=== PATIENT | male | born 1950 | race Caucasian/White ===

== ENCOUNTER 2024-01-26 05:54 | Day surgery (SDC) | payer MEDICARE, OTHER, SELFPAY ==
[2024-01-06 13:15] VITALS: BMI 37.9
[2024-01-26] VITALS (11 sets, daily range): BP systolic 111–163; BP diastolic 57–81
[2024-01-26 08:53] LABS: ACT-LR - POC 343 Seconds (116-155)
[2024-01-26 09:14] LABS: ACT-LR - POC 348 Seconds (116-155)
[2024-01-26 09:37] LABS: ACT-LR - POC 285 Seconds (116-155)
[2024-01-26 09:57] LABS: ACT-LR - POC 326 Seconds (116-155)
[2024-01-26 10:14] LABS: ACT-LR - POC 358 Seconds (116-155)
--- NOTE | 2024-01-26 10:35 | ITS.CL.ABL ---
Finishing Range Feeder - Ablation
Ablation
Procedure Report:
ELECTROPHYSIOLOGY ABLATION STUDY
DATE:: January 26, 2024 REFERRING: Dr. Remy Mcconnell
INDICATION: Paroxysmal supraventricular tachycardia in the form of atrial fibrillation. Refractory to amiodarone therapy
HISTORY: See H and P. As above
ANTIARRHYTHMIC DRUG: Amiodarone
PRE-PROCEDURE DEREK: No intracardiac thrombus
PRESENTING RHYTHM: Sinus bradycardia with right bundle branch block
'TIME-OUT': called and confirmed.
SEDATION/ANESTHESIA: provided via the anesthesia department using general anesthesia (LMA).
INTRAVENOUS/ARTERIAL ACCESS:
Right femoral venous - 8Fr
Left femoral venous - 8 Fr, 6 Fr
Ultrasound guidance for bilateral femoral vein access was utilized by me to obtain access with demonstration of normal anatomy
CHADS-VASC Score:
HAS-Bled Score
PROCEDURE:
1. A decapolar CS catheter was placed within the CS for mapping and pacing. This was also used as the reference catheter for the 3-D map.
2. The intracardiac ultrasound catheter was positioned in the RA to identify the FO for targeting of transseptal puncture, assist in identification of the pulmonary vein ostia, monitoring pre and post ablation pulmonary vein flow velocities,
monitoring for 'bubble' formation during RF application as a sign of thermal injury, and to monitor for pericardial effusion during mapping and ablation procedure. Left atrial size, LV ejection fraction, and pulmonary vein flows were monitored
pre and post ablation procedure. The other valves were inspected and found to be free of significant regurgitation or stenosis.
3. Half of the calculated heparin bolus was administered prior to the first transeptal puncture. Transseptal puncture was performed to diagnose RA and LA pressure so that safety of LA mapping and ablation could be further assessed, and to access
the left atrium and pulmonary veins for mapping and ablation. This entailed advancing an 12 Bulgarian Contour with dilator into the superior vena cava and withdrawing both (monitoring intracardiac ultrasound, fluoroscopy and tip pressure) with the tip
oriented toward the atrial septum. The fossa ovalis was engaged (indicated by sudden displacement of the sheath tip as well as tenting of the fossa seen on intracardiac ultrasound). Left atrial access required a pass with the [place] needle
extended. Left atrial catheter position was confirmed by pressure monitoring (RA mean pressure 8 mm Hg and LA mean pressure 12 mm Hg), LA saturation ( [ ] %), as well as fluoroscopy. The sheath was advanced over the dilator and positioned in the
left atrium. The remainder of the calculated heparin bolus was administered and heparin was
infused to maintain ACT at 300 -350 seconds throughout the case.
4. RA pacing was performed via the proximal decapolar poles and LA pacing was performed via the distal decapolr poles.
5. A quadrapolar catheter was first positioned at the His position for His Bundle recording which was tagged via the 3-D Navex sytem, and then passed to the RVA for RV pacing and recording.
6. The ablation catheter was positioned through one of the transeptal seaths and a 20 pole ring mapping catheter was positioned through the second seath into the LA and then the ostia of the LIPV, LSPV, RSPV and the RIPV.
7. Next, a 3-D map was created using Navex. A 3-D reconstructed CT image was compared to the 3-D Navex map to assist in anatomic interpretation, mapping and ablation. The CT image and the NavX image were fused.
8. Initial pass was 74 lesions with the pulsed select catheter to the ostial and antral pulmonary veins and posterior wall demonstrated initial entrance and exit block in each of the 4 pulmonary veins and the posterior wall. We then mapped the
left atrium with a multipolar catheter demonstrating quite distal connection in the left superior pulmonary vein at the anterior paulino and the right inferior pulmonary vein at the posterior paulino. It was somewhat difficult to bring the pulsed
light catheter distally so the catheter was extended approximately one third which allowed us to engage the distal left superior pulmonary vein and right inferior pulmonary veins and deliver an additional 15 pulses to the left superior and right
inferior pulmonary veins durably isolating the veins with entrance and exit block confirmed as well as entrance and exit block in the left atrial posterior wall. The patient was noninducible for tachyarrhythmia post ablation and EPS did not
demonstrate any inducible tachyarrhythmia.
9. Patient was noted to have sinus bradycardia pre and post procedure with a right bundle branch block and a normal HV interval at 58 ms.
TOTAL FLOURO TIME: 16.7 minutes 167 mGy
TOTAL RF DURATION: 0 minutes
REVERSAL OF HEPARIN: 35 mg of protamine, slow IV administration
COMPLICATIONS:
None
Intracardiac US shows no pericardial effusion post ablation.
SUMMARY:
Complex left atrial mapping and ablation.
Isolation of all 4 pulmonary veins of the left atrial posterior wall as above. The pulsed light catheter was required to be delivered distally in the side the left superior pulmonary vein and right inferior pulmonary veins to address deep
connections at each paulino.
RECOMMENDATIONS:
1. Admit to monitored bed.
2. Resume anticoagulation
3. Out of bed 4 hours and consider same-day discharge
4. Lower amiodarone to 200 mg daily and stop in 1 month
Copy to: Dr. Remy Mcconnell
[2024-01-26] MEDS: ANESTHETIC LOZENGE 1 LOZENGE PO (11:49)
--- NOTE | 2024-01-26 15:17 | W.PN.UPDATE ---
Update Note
Progress Note Update
73 yo WM s/p PVI (same day). He feels good, no cp, sob, guy diet, voiding, amb w/o dizziness, EKG SR, b/l groins c/d/i no HT, soft. He will take Eliquis at 4pm at home. He will decrease amiodarone to daily for 1 month then stop. Activity
restrictions reviewed. He will f/u Dr. Mcconnell in 1 mo. He is for d/c home after 3pm.
SUMMARY:
Complex left atrial mapping and ablation.
Isolation of all 4 pulmonary veins of the left atrial posterior wall as above. The pulsed light catheter was required to be delivered distally in the side the left superior pulmonary vein and right inferior pulmonary veins to address deep
connections at each paulino.
RECOMMENDATIONS:
1. Admit to monitored bed.
2. Resume anticoagulation
3. Out of bed 4 hours and consider same-day discharge
4. Lower amiodarone to 200 mg daily and stop in 1 month
Copy to: Dr. Remy Mcconnell
== END 2024-01-26 15:03 | disposition home or self-care (01) ==
LOC: CATH 05:54
PROVIDERS: ATTENDING PHYSICIAN Internal Medicine Cardiovascular Disease; FAMILY PHYSICIAN Family Medicine; OTHER PHYSICIAN Internal Medicine Cardiovascular Disease
DX: I48.0 Paroxysmal atrial fibrillation (principal); I11.0 Hypertensive heart disease with heart failure; I50.32 Chronic diastolic (congestive) heart failure; Z95.1 Presence of aortocoronary bypass graft; I25.10 Atherosclerotic heart disease of native coronary artery without angina pectoris; I65.21 Occlusion and stenosis of right carotid artery; E78.5 Hyperlipidemia, unspecified; E03.9 Hypothyroidism, unspecified; E66.9 Obesity, unspecified; Z68.37 Body mass index [BMI] 37.0-37.9, adult; M19.90 Unspecified osteoarthritis, unspecified site; Z95.5 Presence of coronary angioplasty implant and graft
CPT/HCPCS: C1732; C1894; C1730; C1769; C1892; C1759; C1733; 76937; 85347; 86900; 86901; 93005; 93656

== ENCOUNTER → 2024-02-08 11:55 | Outpatient (REF) | payer MEDICARE, OTHER, SELFPAY | LOC: RAD 11:55 | PROVIDERS: ATTENDING PHYSICIAN Surgery Vascular Surgery; FAMILY PHYSICIAN Family Medicine; OTHER PHYSICIAN Internal Medicine Cardiovascular Disease | DX: I65.23 Occlusion and stenosis of bilateral carotid arteries (principal) | CPT/HCPCS: 70496; 70498; Q9967 ==

== ENCOUNTER 2024-05-18 06:02 | Inpatient (IN) | payer MEDICARE, OTHER, SELFPAY ==
[2024-05-16 09:23] VITALS: BMI 39.5
[2024-05-16 09:49] LABS: % Basophils 0.8 % (0-2); % Eosinophils 4.2 % (0-6); % Immature Granulocytes 0.3 % (0-0.5); % Lymphocytes 15.3 % (20.5-51.1); % Monocytes 11.3 % (1.7-9.3); % Neutrophils 68.1 % (42.2-75.2); Absolute Basophils 0.1 10^3/uL (0-0.2); Absolute Eosinophils 0.3 10^3/uL (0-0.7); Absolute Monocytes 0.7 10^3/uL (0.1-0.6); Absolute Neutrophils 4.4 10^3/uL (1.4-6.5); Hematocrit 39.3 % (39.0-52.0); Hemoglobin 12.9 g/dL (13.0-18.0); Mean Corp Hgb Conc. 32.8 g/dL (33.0-37.0); Mean Corpuscular Hgb 27.9 pg (27.0-31.0); Mean Corpuscular Volume 85.1 fL (80.0-94.0); Mean Platelet Volume 9.7 fL (7.4-10.4); Nucleated Red Blood Cells % 0 % (-); Platelet Count 167 10^3/uL (130-400); Red Blood Cell Count 4.62 10^6/uL (4.70-6.10); Red Cell Dist. Width 17.4 % (11.5-14.5); White Blood Cell Count 6.5 10^3/uL (4.8-10.8)
[2024-05-16 09:57] LABS: INR 1.41; PT 17.3 Sec (11.4-14.6)
[2024-05-16 09:58] LABS: APTT 34.7 Sec (23.4-35.0)
[2024-05-16 11:14] LABS: Blood Urea Nitrogen 21 mg/dl (9-20); Calcium 9.6 mg/dl (8.4-10.2); Carbon Dioxide 23 mmol/L (22-30); Chloride 105 mmol/L (98-107); Estimated Creatinine Clearance 60 ml/min; Glucose 99 mg/dl (70-99); Potassium 4.2 mmol/L (3.5-5.1); Sodium 139 mmol/L (135-145); eGFR 52.41
--- NOTE | 2024-05-17 12:46 | SUR.OPER ---
Patients 05/16 INR 1.41- Priyanka @ Dr. Ramos office notified
[2024-05-18] VITALS (19 sets, daily range): BP systolic 115–171; BP diastolic 63–111; BMI 39.5
--- NOTE | 2024-05-18 06:53 | HP.FOC2 ---
Focused History & Physical
Chief Complaint
HPI:
Chief Complaint: Asymptomatic right carotid stenosis
HPI / Indication for Planned Procedure: This is a 73-year-old male patient with significant past medical history for a carotid stenosis that has progressed to greater than 70% prompting recommendation for surgical intervention. Patient presents at
baseline health and denies recent hospitalizations, illnesses, or trauma.
Relevant Past Medical History: Coronary Artery Disease, Hypertension and Other (Hypothyroidism, hypercholesterolemia, obesity, atrial fibrillation)
Relevant Social History: Negative and Tobacco Use (Former smoker)
Relevant Family History: Positive for (Coronary artery disease)
Relevant Past Surgical History: Positive for (Bilateral knee replacements, CABG x 4, left hip replacement, A-fib ablation)
Review of Systems
Review of Pertinent Systems: All Systems Negative
Medication
See Medication form for detailed medications: Yes
Medication List (including Herbals & OTC):
apixaban 5 mg tablet (Eliquis) 5 mg PO BID 01/02/24
aspirin 81 mg chewable tablet 81 mg PO DAILY 01/02/24
cholecalciferol (vitamin D3) 125 mcg (5,000 unit) tablet (Vitamin D3) 125 mcg PO DAILY 01/02/24
ezetimibe 10 mg tablet 10 mg PO DAILY 01/02/24
isosorbide dinitrate 10 mg tablet 10 mg PO BID 01/02/24
levothyroxine 100 mcg tablet 100 mcg PO DAILY 01/02/24
metoprolol succinate 25 mg tablet,extended release 24 hr 25 mg PO DAILY 01/02/24
rosuvastatin 40 mg tablet 40 mg PO DAILY 01/02/24
tamsulosin 0.4 mg capsule (Flomax) 0.4 mg PO HS 05/15/24
Medications Reviewed: Yes
Allergies and Reactions
Patient has Allergies: Yes
Noted Allergies and Reactions:
Allergy/AdvReac Type Severity Reaction Status Date / Time
pollen extracts Allergy seasonal Verified 05/15/24 13:52
allergies
Pertinent Physical Exam
All Other Systems: Negative
Head/Neck: Normal
Lungs: Normal (Bilateral lungs clear to auscultation)
Heart: Other (Regular rate and rhythm, positive murmur)
Abdomen: Normal (Nontender and nondistended)
Extremities: Normal
Neurological: Normal (Awake and oriented x 3)
Diagnosis / Assessment
73-year-old male with right carotid stenosis
Plan / Procedure
Will proceed today with planned right carotid endarterectomy
Anesthesia/Sedation to be done by Anesthesia Provider: Yes
[2024-05-18] MEDS: BACTROBAN NASAL 1 GRAM NASAL (06:56)
[2024-05-18] MEDS: NSS 500 IV (06:57)
[2024-05-18] MEDS: PERIDEX 0.12% ORAL RINSE 15 ML PO (06:57)
--- NOTE | 2024-05-18 07:26 | W.SUR.PREOP ---
Pre-Operative Surgical Note
-
I have examined this patient prior to the performance of the scheduled procedure.
The patient's condition is unchanged from the time of the current History and
Physical and the patient is able to undergo the scheduled procedure.
[2024-05-18 08:59] LABS: ACT-LR - POC 321 Seconds (116-155)
[2024-05-18 09:37] LABS: ACT-LR - POC 308 Seconds (116-155)
--- NOTE | 2024-05-18 11:02 | W.SUR.POST ---
Surgical Immediate Post Op
Note
Pre Op Diagnosis: Carotid stenosis
Post Op Diagnosis: Carotid stenosis
Procedure Performed: RIGHT Carotid endarterectomy
Primary Surgeon: Giovanny Goode MD
Secondary Surgeons: Checo Phipps MD, PhD
Anesthesia: Per Anesthesia
Estimated Blood Loss: 20 cc
Fluids: Per Anesthesia
Drains/Shunts: None
Specimens/Cultures: None
Doppler/Duplex/Angio (Y/N): Yes, doppler intact
Complications: None
Operative Findings: Incision over right SCM, dissection and control of CCA, ICA and ECA, endarterectomy and patch with dense plaque resected from RCCA and ABBEY, closed in multiple layers.
[2024-05-18] MEDS: NSS 1000 IV ×2 (11:05→23:09)
--- NOTE | 2024-05-18 11:16 | OR.RPT ---
Operative Report
Operative Report
Date of Operation: 05/18/2024
Pre Op Diagnosis: Asymptomatic high-grade stenosis of the right internal carotid artery
Post Op Diagnosis: Asymptomatic high-grade stenosis of the right internal carotid artery
Procedure: RIGHT carotid endarterectomy with patch angioplasty using bovine pericardium
Surgeon: Giovanny Goode III, MD
Private Branch Exchange Installer: Checo Phipps MD PhD PGY-6
Anesthesia: General
Complications: None
History and Indications for Procedure: 73-year-old male with asymptomatic high-grade stenosis of the right internal carotid artery.
Procedure in Detail: Jim Mckee was correctly identified and placed supine on the operating table. After adequate induction of anesthesia the right neck was positioned, prepped and draped in the usual sterile fashion. Preoperative antibiotics
were administered. A timeout procedure was performed with the nursing and anesthesia staff confirming the patients identity as well as the nature and laterality of the procedure.
The carotid bifurcation was marked with ultrasound at the beginning of the case. The incision was planned accordingly. An incision was made along the anterior border of the right sternocleidomastoid muscle. Electrocautery was used to divide the
subcutaneous tissue and platysma. The carotid sheath was entered with sharp dissection. The internal jugular vein was retracted laterally. The vagus nerve was identified and protected throughout the case. The common carotid artery was identified at
the base of this incision and carefully encircled with a vessel loop. The patient was systemically heparinized. The dissection was continued distally towards the carotid bifurcation. The facial vein was skeletonized, ligated and divided between ties
and clips. The proximal external carotid artery was encircled with a vessel loop. The distal internal carotid artery was encircled with a vessel loop at a soft spot on the artery beyond the plaque. The hypoglossal nerve was identified and protected.
The internal vessel loop was secured followed by the common and external. An arteriotomy was made on the distal common carotid artery with an 11-blade. This was extended proximally and distally with Hcou scissors. The arteriotomy was extended
distally through the plaque to an area of normal appearing internal carotid artery. The distal vessel loop was replaced with a short tip hockey-stick type vascular clamp. An endarterectomy was performed with a [place] elevator in the standard
fashion. The proximal extent of the plaque was transected with scissors. The distal end of the plaque in the internal carotid artery feathered nicely with the assistance of an 11 blade. A posterior intimal flap was tacked down with a single 7-0
Prolene suture along the back wall. The plaque extending into the external carotid artery was everted. Once the plaque was fully removed the endarterectomy plane was irrigated with heparinized saline and any loose fronds of tissue were removed. A
pre-cut piece of bovine pericardium was sewn in place using a running 6-0 Prolene suture. Prior to the completion of the patch the common carotid was allowed to forward bleed and the external was allowed to back bleed. The area under the patch was
irrigated with heparinized saline to remove any potential thrombus or debris. The anastomosis was completed.
The external vessel loop was released first, followed by the common and then the internal. There was an excellent pulse in the distal internal carotid artery. An excellent quality Doppler signal in the distal internal carotid artery was also
confirmed. The patch suture line was closely inspected for hemostasis and was achieved. Protamine was administered. Hemostasis was achieved in the wound bed. The wound was irrigated with saline solution.
The wound was then closed in layers. Sterile dressings were applied. The patient awoke from anesthesia with no immediate neuro deficits and was taken to the PACU in stable condition.
Attestation: I was present and responsible for the entire procedure
Signed:
Giovanny Goode III, MD
[facility]
[phone] (cell)
[2024-05-18 11:21] LABS: INR 1.34; PT 16.4 Sec (11.4-14.6)
[2024-05-18 11:22] LABS: Hematocrit 34.7 % (39.0-52.0); Hemoglobin 11.8 g/dL (13.0-18.0); Mean Corpuscular Hgb 28.2 pg (27.0-31.0); Red Blood Cell Count 4.18 10^6/uL (4.70-6.10); White Blood Cell Count 7.7 10^3/uL (4.8-10.8)
[2024-05-18 11:23] LABS: Mean Platelet Volume 10.4 fL (7.4-10.4); Platelet Count 139 10^3/uL (130-400); Red Cell Dist. Width 17.2 % (11.5-14.5)
[2024-05-18 11:31] LABS: APTT 34.7 Sec (23.4-35.0)
[2024-05-18 11:49] LABS: Blood Urea Nitrogen 21 mg/dl (9-20); Calcium 8.7 mg/dl (8.4-10.2); Carbon Dioxide 22 mmol/L (22-30); Chloride 107 mmol/L (98-107); Estimated Creatinine Clearance 71 ml/min; Glucose 116 mg/dl (70-99); Potassium 4.4 mmol/L (3.5-5.1); Sodium 135 mmol/L (135-145); eGFR > 60.00
--- NOTE | 2024-05-18 12:00 | PTCARENOTE ---
report received from pacu nurse. pt admitted to ICU room 3359. Pt awake, alert, orientedx3. strength equal in all extremities. pupils 3mm equal and reactive. no facial droop, tongue devation noted. pt noted to have right side fat lip- which makes
smile look somewhat asymmetrical. pt reports having a fall on tuesday- two scabbed areas on right forearm with bruising. SR/SB on telemetry heart rate 50-60s. pulses palpable in all extremities. +1 pitting edema in lower extremites. redness noted
on feet- pt reports this is normal for him. knee high SCDs placed. left arterial line, leveled and zeroed with appropriate waveform. correlating with cuff blood pressures. pt on 2L nasal cannula, sat 97%. lung sounds clear. active bowel sounds,
denies nausea. tolerating ice chips and sips of clears. pt states he voided in pacu. NS infusing at 80 ml/hr. 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 ice applied intermittently. see worklist for full nursing assessment and interventions.
and daughter brought to bedside. pt and family updated on plan of care.
--- NOTE | 2024-05-18 12:13 | CON.INTV ---
Consultation
Consultation Request
Date/Time Consultation Requested: 05/18/2024 - 1008
Date/Time Consultation Performed: 05/18/2024 - 1032
Requesting Provider: ENRIQUE Patterson
Performing Provider: Remy Carreon MD
Reason for Consultation: post-op R-CEA
Medical History
-
Chief Complaint: Elective R-CEA
History of Present Illness:
73-year-old male non-smoker with a past medical history of A-fib s/p cardioversion + ablation, CAD s/p coronary stents + CABG, hypertension, hypercholesterolemia, hypothyroidism, carotid artery stenosis and obesity who presents with elective
right-sided carotid endarterectomy. Patient known to vascular surgery with last office visit on 02/16/[address] Goode. He has known bilateral carotid artery stenosis. His prior CTA was reviewed, showing high-grade stenosis involving his right
carotid artery. He was asymptomatic. Today he underwent right carotid endarterectomy. EBL was 20 cc, and there was no complications. He was transferred to the ICU postoperatively and critical care services consulted for additional
management/recommendations.
When I saw the patient he was in bed, and additional family members at bedside, all questions were answered. BP 140/111 (via arterial line), BP 133/61 (via NIBP), and saturating 97% on 3 L/min nasal cannula. He denies any pain, SOB, CP,
abdominal pain, nausea, fevers or chills.
PMHx: Hypertension, coronary artery disease s/p stent, carotid artery stenosis, A-fib on Eliquis, hypothyroidism, hypercholesterolemia, obesity
PSHx: Coronary stents, retinal repair, spinal surgery, bilateral knee replacements, CABG X4, colonoscopy, left hip replacement, cardioversion, ablation
Past Medical History
Past Medical History: Other (Above as per HPI)
Past Surgical History: Other (Above as per HPI)
Social History
Tobacco: Non-smoker
Alcohol: Occasional
Drug: None
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
Family History
Family History: CAD (Father: History of CABG x 4) and Cancer (Father + mother)
Allergies / Home Medications
Allergies
Allergy/AdvReac Type Severity Reaction Status Date / Time
pollen extracts Allergy seasonal Verified 05/15/24 13:52
allergies
Home Medications
�Medication �Instructions �Recorded �Confirmed �Last Taken �Type
apixaban 5 mg tablet (Eliquis) 5 mg PO BID 01/02/24 05/18/24 05/16/24 10:00 History
aspirin 81 mg chewable tablet 81 mg PO DAILY 01/02/24 05/18/24 05/18/24 06:00 History
cholecalciferol (vitamin D3) 125 125 mcg PO DAILY 01/02/24 05/18/24 05/17/24 10:00 History
mcg (5,000 unit) tablet (Vitamin
D3)
ezetimibe 10 mg tablet 10 mg PO DAILY 01/02/24 05/18/24 05/17/24 10:00 History
isosorbide dinitrate 10 mg tablet 10 mg PO BID 01/02/24 05/18/24 05/17/24 22:00 History
levothyroxine 100 mcg tablet 100 mcg PO DAILY 01/02/24 05/18/24 05/18/24 06:00 History
metoprolol succinate 25 mg 25 mg PO DAILY 01/02/24 05/18/24 05/17/24 10:00 History
tablet,extended release 24 hr
rosuvastatin 40 mg tablet 40 mg PO DAILY 01/02/24 05/18/24 05/17/24 10:00 History
tamsulosin 0.4 mg capsule (Flomax) 0.4 mg PO HS 05/15/24 05/18/24 05/17/24 10:00 History
Review of Systems
-
History Source: Patient
All other systems: Negative unless noted
Vitals / Labs / Diagnostic Testing
Vital Signs
Temp Pulse Resp BP Pulse Ox
97.2 F 52 19 127/67 98
05/18/24 11:27 05/18/24 11:15 05/18/24 11:15 05/18/24 11:15 05/18/24 11:15
Lab Data
05/18/24 10:46
05/18/24 10:46
Laboratory Results
05/18/24
10:46
PT 16.4 H
INR 1.34
APTT 34.7
Microbiology
05/16/24 09:37 Nose MRSA Screen - Final
No Methicillin Resistant Staphylococcus aureus isolated.
Diagnostic Testing:
Physical Exam
-
HEENT: Normocephalic, Anicteric and Other (thick neck)
Cardiovascular: S1/S2 and Peripheral Edema (negative)
Respiratory: Wheeze (negative), Rales (negative), Rhonchi (negative) and Non-Labored Respirations
GI: Soft, Distended (Abdominal obesity), Non Tender and Normal Bowel Sounds
Neurology: AO x 3 and Tremors (negative)
Skin: Warm and Dry
General: Respiratory Distress (negative), Comfortable, Fever (negative) and Chills (negative)
Assessment
-
Assessment: 73-year-old male former tobacco smoker with a past medical history of A-fib s/p cardioversion + ablation, CAD s/p coronary stents + CABG, hypertension, hypercholesterolemia, hypothyroidism, carotid artery stenosis and obesity who
presents with elective right-sided carotid endarterectomy. Patient known to vascular surgery with last office visit on 02/16/[address] Goode. He has known bilateral carotid artery stenosis. His prior CTA was reviewed, showing high-grade
stenosis involving his right carotid artery. He was asymptomatic. Today he underwent right carotid endarterectomy. EBL was 20 cc, and there was no complications. He was transferred to the ICU postoperatively and critical care services consulted
for additional management/recommendations.
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
Impression:
#Carotid artery stenosis s/p right carotid endarterectomy (POD #0)
#Anemia (mild)
#Chronic left-sided lacunar infarct
#CAD s/p coronary stents + CABG
#Obesity (BMI: 39.5)
Plan:
Postoperative surgical intensive care unit monitoring
Supplemental oxygen as needed to maintain SpO2 >90-94%
prn nebulized bronchodilators
Incentive spirometry encouraged 10x per hour for at least 4 hrs a day
Aspiration precautions
Neuro and vascular checks per protocol
Maintain MAP>65
Replete electrolytes with K>4, Mg>2
Maintain euglycemia with goal BG 140-180
Vascular surgery following-correspondence and operative notes reviewed
DVT prophylaxis
Early nutrition
Early mobilization
PT/OT
Critical care statement: A total of 38 minutes of critical care time was provided for this patient today. This includes management of unstable vital signs, evaluation of the patient at bedside, reviewing the patient's pertinent medical records
including radiographs, microbiology, laboratory evaluations, and discussion with primary team, consultants, pharmacy, nutrition, physical therapy, case management, charge nurse, critical care nursing, and respiratory therapy.
[2024-05-18 14:29] LABS: Magnesium 1.9 mg/dl (1.6-2.3)
[2024-05-18] MEDS: FLOMAX 0.4 MG PO (21:00)
[2024-05-18] MEDS: TYLENOL 650 MG PO (21:00)
[2024-05-18] MEDS: ISORDIL 10 MG PO (21:00)
[2024-05-18] MEDS: HEPARIN 5000 UNITS SC (21:01)
--- NOTE | 2024-05-18 21:30 | PTCARENOTE ---
Assumed care of pt at 1900. Pt is A/O x4, pleasant and cooperative with care. S/P right CEA. Neurological checks ongoing Q1 hour, have been WNL, see neuro assessment flowsheet for details. Left radial A line in place, BP has been within systolic
goal of 100-160 without the need for Cardene or Phenylephrine. Pt reports [id number] pain, requested Tylenol to 'take the edge off' before going to sleep but rated pain 1/10. Pt intermittantly applying ice pack to right neck incision. Physical
assessment completed, see nursing shift assessment flowsheet for full details. Call chen and personal items within reach.
[2024-05-19] VITALS (16 sets, daily range): BP systolic 102–139; BP diastolic 50–77; PULSE 56–60; O2SAT 94; BMI 39.2
--- NOTE | 2024-05-19 02:21 | PTCARENOTE ---
Assessment unchanged. Neurological checks ongoing, no changes. Pt inadvertently pulled out his arterial line around 0100, catheter completely out and unable to save line. Pressure held and pressure dressing applied, CHG cloth bath done and all bed
linens changed. Pt's BP has remained stable, reading 130s-140s with BP cuff. SB 50s on monitor. SpO2 92-95% on RA.
[2024-05-19 04:32] LABS: Hematocrit 34.8 % (39.0-52.0); Hemoglobin 11.6 g/dL (13.0-18.0); Mean Corp Hgb Conc. 33.3 g/dL (33.0-37.0); Mean Corpuscular Volume 84.1 fL (80.0-94.0); Mean Platelet Volume 9.9 fL (7.4-10.4); Platelet Count 141 10^3/uL (130-400); Red Blood Cell Count 4.14 10^6/uL (4.70-6.10); Red Cell Dist. Width 17.2 % (11.5-14.5); White Blood Cell Count 9.2 10^3/uL (4.8-10.8)
--- NOTE | 2024-05-19 04:42 | PTCARENOTE ---
Physical and neurological assessments unchanged. SB 50s on monitor. BP remains in 130s-140s.
[2024-05-19 04:45] LABS: INR 1.25; PT 15.5 Sec (11.4-14.6)
[2024-05-19 04:46] LABS: APTT 31.9 Sec (23.4-35.0)
[2024-05-19 04:57] LABS: Blood Urea Nitrogen 20 mg/dl (9-20); Calcium 9.3 mg/dl (8.4-10.2); Carbon Dioxide 24 mmol/L (22-30); Chloride 106 mmol/L (98-107); Estimated Creatinine Clearance 70 ml/min; Glucose 135 mg/dl (70-99); Potassium 4.9 mmol/L (3.5-5.1); Sodium 136 mmol/L (135-145); eGFR > 60.00
--- NOTE | 2024-05-19 06:46 | W.PN.INTV ---
Today's Communication / Plan
Recommendations
Out of bed to chair, ambulate
Neuroexam nonfocal
Possible disposition later today
Assessment
-
Assessment: 73-year-old male former tobacco smoker with a past medical history of A-fib s/p cardioversion + ablation, CAD s/p coronary stents + CABG, hypertension, hypercholesterolemia, hypothyroidism, carotid artery stenosis and obesity who
presents with elective right-sided carotid endarterectomy. Patient known to vascular surgery with last office visit on 02/16/[address] Goode. He has known bilateral carotid artery stenosis. His prior CTA was reviewed, showing high-grade
stenosis involving his right carotid artery. He was asymptomatic. Today he underwent right carotid endarterectomy. EBL was 20 cc, and there was no complications. He was transferred to the ICU postoperatively and critical care services consulted
for additional management/recommendations.
Chronic conditions E MARKETING SPECIALIST: Hypertension, coronary artery disease s/p stent, carotid artery stenosis, A-fib on Eliquis, hypothyroidism, hypercholesterolemia, obesity
Impression:
#Carotid artery stenosis s/p right carotid endarterectomy (POD #0)
#Anemia (mild)
#Chronic left-sided lacunar infarct
#CAD s/p coronary stents + CABG
#Obesity (BMI: 39.5)
Plan/recommendations
At this time, patient appears to be comfortable
A-line came out overnight. Hemodynamics are stable
Neurological exam nonfocal
Moving forward
Continue with management per vascular surgery
Out of bed to chair, ambulate
Neuro and vascular checks per protocol
Maintain MAP>65
Follow electrolytes, blood sugars
Vascular surgery following-correspondence and operative notes reviewed
Possible disposition later today
Reviewed with critical care nursing, vascular surgery
Subjective Dataa
Subjective Data
Date of Service:
Date of Service: May 19, 2024
Subjective:
Patient is without complaints. He is feeling hungry. He denies shortness of breath, chest pain, abdominal pain. A-line came out overnight. Conversant and appears to be in good spirits. Neuroexam nonfocal. Right carotid incision intact
Objective Data
Data Reviewed
Vital Signs / I&O / Oxygen:
Vital Signs
Temp Pulse Resp BP Pulse Ox
98.1 F 54 18 134/68 95
05/19/24 03:17 05/19/24 06:00 05/19/24 06:00 05/19/24 06:00 05/19/24 06:00
Intake and Output
05/17/24 05/18/24 05/19/24
06:59 06:59 06:59
Intake Total 2765 / 2765
Output Total 2915 / 2915
Balance -150 / -150
SaO2 95
Nasal Cannula flow liters per 2
minute
Physical Exam
General: Comfortable and Other (Right CEA)
HEENT: Normocephalic, Anicteric and Other (Large neck)
Cardiovascular: S1-S2, Regular Rhythm, Murmur (n), Rub (n), Peripheral Edema (n) and Calf Tenderness (n)
Respiratory: Wheeze (n), Crackles (n), Rhonchi (n) and Non-Labored Respirations
GI: Soft and Non Distended (Obese)
Neurology: Awake, Alert and No Motor Deficits (Cranial nerves intact)
Skin: Jaundice (n) and Rash (n)
Labs/Micro/Reports
Lab Data
05/19/24 04:18
05/19/24 04:18
Laboratory Results
05/18/24 05/19/24
10:46 04:18
PT 16.4 H 15.5 H
INR 1.34 1.25
APTT 34.7 31.9
Microbiology
05/16/24 09:37 Nose MRSA Screen - Final
No Methicillin Resistant Staphylococcus aureus isolated.
[2024-05-19] MEDS: CRESTOR 40 MG PO (07:58)
[2024-05-19] MEDS: LOW STRENGTH ASPIRIN 81 MG PO (07:58)
[2024-05-19] MEDS: TOPROL XL 25 MG PO (07:58)
[2024-05-19] MEDS: ZETIA 10 MG PO (07:58)
[2024-05-19] MEDS: ISORDIL 10 MG PO (07:58)
[2024-05-19] MEDS: VITAMIN D3 (cholecalciferol) 125 MCG PO (07:58)
[2024-05-19] MEDS: SYNTHROID 100 MCG PO (07:58)
[2024-05-19] MEDS: HEPARIN 5000 UNITS SC (07:59)
--- NOTE | 2024-05-19 07:59 | W.PN.VS ---
Addendum entered and electronically signed by Jose Sutton MD 05/19/24 08:06:
Seen and examined with CHELSEY Jalloh. Agree with findings as noted below. Right neck incision clean dry and intact. No hematoma. Neurologically no focal deficits. Moves all extremities well. Tongue midline. Plan/as discussed and noted below.
Original Note:
Today's Communication / Plan
-
Patient seen and examined at bedside with Dr. Jose Sutton, below plan reviewed with attending
Assessment/Plan
-
Assessment: 73-year-old male POD #1 right carotid endarterectomy
Plan:
Discontinue IV fluid
OOB to chair with progression to ambulation as tolerated
Continue p.o. diet
Possible discharge later this afternoon pending on continued progression
Subjective Data
-
Date of Service: May 19, 2024
Patient seen and examined at bedside, offers no complaints. Reports adequate postoperative pain at right surgical neck incision. Does note overnight moving abruptly and by accident removing left wrist arterial line. However, he reports nursing
responded immediately and he denies any pain at the removal site.
Objective Data
-
Vital Signs
Temp Pulse Resp BP Pulse Ox
98.4 F 54 18 134/68 95
05/19/24 07:00 05/19/24 06:00 05/19/24 06:00 05/19/24 06:00 05/19/24 06:00
Intake and Output
05/18/24 05/19/24 05/20/24
06:59 06:59 06:59
Intake Total 2765 / 2765
Output Total 3090 / 3090
Balance -325 / -325
Intake:
Oral fluids 1200 / 1200
IV fluids (Total) 1565 / 1565
NSS 585 / 585
Normosol 100 / 100
Nss 1,000 ml @ 80 mls/hr IV . 880 / 880
[id number] [facility] Rx#:[id number]
Output:
Urine, Goode 1039 / 1039
Urine, Voided 2049
Other:
How many times incontinent 1
MODERATE amount urine
Lab Results
05/19/24 04:18
05/19/24 04:18
Calcium 9.3 mg/dl (8.4-10.2) 05/19/24 04:18
Magnesium 1.9 mg/dl (1.6-2.3) 05/18/24 10:46
Physical Exam
-
AAOx3, no apparent distress
Right neck incision CDI, no evidence of edema, suture line well-approximated, face symmetrical, tongue midline
No tachycardia
No dyspnea
ABD rotund, nondistended
Bilateral lower EXTR without edema, bilateral upper and lower extremities with equal strength
--- NOTE | 2024-05-19 08:00 | PTCARENOTE ---
pt recieved at bedside from previous rn- aox4, nsr with bbb on monitor, able to make needs known, on room air. denies any pain or discomfort at this time.neuro checks wnl. pt noted and stated he bit right lip, has swelling, makes smile look slightly
asymmetrical. poc discussed with pt and Dr. Sutton. Pt in for discharge. Physical therapy at bedside. ivf off per order. all safety precautions in place, call chen within reach. right neck incision c/d/i
--- NOTE | 2024-05-19 08:42 | PTCARENOTE ---
pt recieved from previous rn- aox4, nsr with bbb on monitor, able to make needs known, on room air. denies any pain or discomfort at this time.neuro checks wnl. poc discussed with pt and Dr. Sutton. Pt in for discharge. Physical therapy at bedside. ivf
off per order. all safety precautions in place, call chen within reach. right neck incision c/d/i
--- NOTE | 2024-05-19 09:19 | W.DS.TRANS ---
DC Summary - Command Center Officer
-
Discharge Instructions:
Sleep Apnea Risk High
Discharge Diagnosis/Procedures Right carotid endarterectomy
Diet As tolerated
Activity No strenuous activity
Driving Restrictions Not until seen by your Dr
Bathing Restrictions OK to Shower
Instructions:
Stand-Alone Forms: DC Instr - Vascular OR
Changes to Home Medications: Yes
Discharge Medications:
DC Medications w/original date entered in [employer]
apixaban 5 mg tablet (Eliquis) 5 mg PO BID 01/02/24
aspirin 81 mg chewable tablet 81 mg PO DAILY 01/02/24
cholecalciferol (vitamin D3) 125 mcg (5,000 unit) tablet (Vitamin D3) 125 mcg PO DAILY 01/02/24
ezetimibe 10 mg tablet 10 mg PO DAILY 01/02/24
isosorbide dinitrate 10 mg tablet 10 mg PO BID 01/02/24
levothyroxine 100 mcg tablet 100 mcg PO DAILY 01/02/24
metoprolol succinate 25 mg tablet,extended release 24 hr 25 mg PO DAILY 01/02/24
rosuvastatin 40 mg tablet 40 mg PO DAILY 01/02/24
tamsulosin 0.4 mg capsule (Flomax) 0.4 mg PO HS 05/15/24
Home Medication Changes
held: apixaban 5 mg tablet (Eliquis) 5 mg PO BID 01/02/24
Pending Results: No
--- NOTE | 2024-05-19 09:26 | CM ---
Addendum entered by Daniela Gan RN 05/19/24 12:27:
CM reviewed medical records. Patient cleared by PT for home. CM will continue to follow.
PLAN: Home no needs.
Original Note:
CM reviewed medical records. Patient for discharge today. CM awaiting PT evaluation for further discharge planning efforts. CM updated bedside RN that CM was following.
--- NOTE | 2024-05-19 11:26 | PTCARENOTE ---
dr. lemon updated on pt- pt cleared to go home, ivs removed, dressings applied. pt educated about discharge instructions verbalized understanding.
--- NOTE | 2024-05-19 12:42 | PTCARENOTE ---
pt taken down in wheelchair, and pt verbalized understanding to all d/c instructions and education
== END 2024-05-19 12:54 | disposition home or self-care (01) | DRG 38 ==
LOC: ICU 06:02
PROVIDERS: Nurse Practitioner; ADMITTING PHYSICIAN Surgery Vascular Surgery; CONSULT PHYSICIAN Internal Medicine Critical Care Medicine; FAMILY PHYSICIAN Family Medicine
PROC: 03CK0ZZ Extirpation of Matter from Right Internal Carotid Artery, Open Approach (ICD-10-PCS; 2024-05-18)
PROC: 03UK0KZ Supplement Right Internal Carotid Artery with Nonautologous Tissue Substitute, Open Approach (ICD-10-PCS; 2024-05-18)
DX: I65.23 Occlusion and stenosis of bilateral carotid arteries (principal); I25.810 Atherosclerosis of coronary artery bypass graft(s) without angina pectoris; I50.32 Chronic diastolic (congestive) heart failure; I25.10 Atherosclerotic heart disease of native coronary artery without angina pectoris; I48.0 Paroxysmal atrial fibrillation; I11.0 Hypertensive heart disease with heart failure; E03.9 Hypothyroidism, unspecified; E78.2 Mixed hyperlipidemia; D64.9 Anemia, unspecified; E66.9 Obesity, unspecified; Z68.39 Body mass index [BMI] 39.0-39.9, adult; Z95.5 Presence of coronary angioplasty implant and graft; Z95.1 Presence of aortocoronary bypass graft; Z87.891 Personal history of nicotine dependence; Z82.49 Family history of ischemic heart disease and other diseases of the circulatory system; Z79.01 Long term (current) use of anticoagulants; Z79.82 Long term (current) use of aspirin; Z79.890 Hormone replacement therapy; Z86.73 Personal history of transient ischemic attack (TIA), and cerebral infarction without residual deficits
CPT/HCPCS: 88304; 88311; 35301; 36415; 71045; 80048; 83735; 85025; 85027; 85610; 85730; 87070; 93005; 97116; 97162

== ENCOUNTER → 2024-07-04 11:30 | Outpatient (REF) | payer MEDICARE, OTHER, SELFPAY | LOC: RAD 11:30 | PROVIDERS: ATTENDING PHYSICIAN Registered Nurse; FAMILY PHYSICIAN Family Medicine | DX: I65.21 Occlusion and stenosis of right carotid artery (principal) | CPT/HCPCS: 93880 ==

== ENCOUNTER → 2025-01-03 11:04 | Outpatient (REF) | payer MEDICARE, OTHER, SELFPAY ==
[2025-01-03 12:42] LABS: % Basophils 1.4 % (0-2); % Eosinophils 5.4 % (0-6); % Immature Granulocytes 0.5 % (0-0.5); % Lymphocytes 15.7 % (20.5-51.1); % Monocytes 11.6 % (1.7-9.3); % Neutrophils 65.4 % (42.2-75.2); Absolute Basophils 0.1 10^3/uL (0-0.2); Absolute Eosinophils 0.3 10^3/uL (0-0.7); Absolute Lymphocytes 0.9 10^3/uL (1.2-3.4); Absolute Monocytes 0.7 10^3/uL (0.1-0.6); Absolute Neutrophils 3.7 10^3/uL (1.4-6.5); Hematocrit 42.1 % (39.0-52.0); Hemoglobin 13.8 g/dL (13.0-18.0); Mean Corp Hgb Conc. 32.8 g/dL (33.0-37.0); Mean Corpuscular Hgb 28.7 pg (27.0-31.0); Mean Corpuscular Volume 87.5 fL (80.0-94.0); Mean Platelet Volume 10.1 fL (7.4-10.4); Nucleated Red Blood Cells % 0 % (-); Platelet Count 176 10^3/uL (130-400); Red Blood Cell Count 4.81 10^6/uL (4.70-6.10); Red Cell Dist. Width 15.3 % (11.5-14.5); White Blood Cell Count 5.6 10^3/uL (4.8-10.8)
[2025-01-03 12:55] LABS: INR 1.25; PT 16.3 Sec (11.4-14.6)
[2025-01-03 13:51] LABS: ALT (SGPT) 42 U/L (0-50); AST (SGOT) 28 U/L (17-59); Albumin 4.5 g/dl (3.5-5.0); Alkaline Phosphatase 84 U/L (38-126); Blood Urea Nitrogen 18 mg/dl (9-20); Calcium 9.6 mg/dl (8.4-10.2); Carbon Dioxide 24 mmol/L (22-30); Chloride 106 mmol/L (98-107); Glucose 88 mg/dl (70-99); Magnesium 2.1 mg/dl (1.6-2.3); Potassium 4.5 mmol/L (3.5-5.1); Sodium 142 mmol/L (135-145); Total Bilirubin 0.9 mg/dl (0.2-1.3); eGFR 52.09
[2025-01-03 13:58] LABS: NT-proBNP 717 pg/ml
== END ==
LOC: SDSPAT 11:04
PROVIDERS: ATTENDING PHYSICIAN Internal Medicine Cardiovascular Disease; FAMILY PHYSICIAN Internal Medicine; OTHER PHYSICIAN Internal Medicine Cardiovascular Disease
DX: I48.0 Paroxysmal atrial fibrillation (principal)
CPT/HCPCS: 36415; 80053; 83735; 83880; 85025; 85610; 86850; 86900; 86901; 93005

== ENCOUNTER → 2025-01-14 11:02 | Outpatient (REF) | payer MEDICARE, OTHER, SELFPAY | LOC: RAD 11:02 | PROVIDERS: ATTENDING PHYSICIAN Surgery Vascular Surgery; FAMILY PHYSICIAN Internal Medicine | DX: I65.29 Occlusion and stenosis of unspecified carotid artery (principal); I65.21 Occlusion and stenosis of right carotid artery | CPT/HCPCS: 93880 ==

== ENCOUNTER 2025-01-17 08:13 | Day surgery (SDC) | payer MEDICARE, OTHER, SELFPAY ==
[2025-01-03 11:54] VITALS: BMI 38.2
[2025-01-17] VITALS (15 sets, daily range): BP systolic 104–162; BP diastolic 57–89
[2025-01-17 12:17] LABS: ACT-LR - POC 277 Seconds (116-155)
[2025-01-17 12:34] LABS: ACT-LR - POC 337 Seconds (116-155)
[2025-01-17 12:55] LABS: ACT-LR - POC 363 Seconds (116-155)
--- NOTE | 2025-01-17 13:26 | ITS.CL.ABL ---
Client Support Analyst - Ablation
Ablation
Procedure Report:
ELECTROPHYSIOLOGY ABLATION STUDY
DATE:: January 17, 2025�����������������������������REFERRING: Dr. Remy Mcconnell
INDICATION: Persistent supraventricular tachycardia in the form of atrial fibrillation.� Prior PVI plus left atrial posterior wall isolation with a pulse select PFA catheter in January 2024
HISTORY: See H and P.� As above
ANTIARRHYTHMIC DRUG: Metoprolol
PRE-PROCEDURE DEREK: No intracardiac thrombus on intracardiac ultrasound
PRESENTING RHYTHM: Atrial fibrillation
'TIME-OUT':��called and confirmed.
SEDATION/ANESTHESIA:��provided via the anesthesia department using general anesthesia (LMA).
INTRAVENOUS/ARTERIAL ACCESS:
Right femoral venous - 10 Fr
Left femoral venous - 8 Fr, 6 Fr
Left femoral arterial - 5 Fr
Ultrasound guidance for bilateral femoral vein access was utilized by me to obtain access with demonstration of normal anatomy
Vascade vascular closure was performed to the right and left femoral venous sites post procedure with adequate hemostasis.
PROCEDURE:
1.��A decapolar CS catheter was placed within the CS for mapping and pacing.��This was also used as the reference catheter for the 3-D map. We cardioverted the patient to sinus rhythm prior to mapping. We utilized both high density multipolar grid
mapping pre and post ablation to identify any fractionated signal given prior posterior wall isolation with the pulsed select catheter. The left inferior pulmonary vein at the paulino and right inferior pulmonary vein at the posterior paulino were
reconnected. The posterior wall had reconnected in a focal region towards the roof in the middle of the posterior wall with ingrowth in the posterior wall at the central roof and the inferior portion of the posterior wall just outside the left
inferior pulmonary vein. This was reconfirmed with the lattice catheter which demonstrated relatively similar voltage and ablation was performed with the Affera lattice catheter with pulsed field ablation.
2. The intracardiac ultrasound catheter was positioned in the RA to identify the FO for targeting of transseptal puncture, assist��in identification of the pulmonary vein ostia, monitoring pre and post ablation pulmonary vein flow velocities,
monitoring for 'bubble' formation during RF application as a sign of thermal injury,��and to monitor for pericardial effusion during mapping and ablation procedure.���Left atrial size, LV ejection fraction, and pulmonary vein flows were monitored
pre and post ablation procedure. The other valves were inspected and found to be free of significant regurgitation or stenosis.
3.��Half of the calculated heparin bolus was administered prior to the first transeptal puncture.��Transseptal puncture was performed to diagnose RA and LA pressure so that safety of LA mapping and ablation could be further assessed, and to access
the left atrium and pulmonary veins for mapping and ablation.��This entailed advancing an 10 Kiswahili steerable sheath, safe set wire, with dilator into the superior vena cava and withdrawing both (monitoring intracardiac ultrasound, fluoroscopy and
tip pressure) with the tip oriented toward the atrial septum.��The fossa ovalis was engaged (indicated by sudden displacement of the sheath tip as well as tenting of the fossa seen on intracardiac ultrasound).��Left atrial access required a pass
with the Brock[place]rough needle extended.��Left atrial catheter position was confirmed by pressure monitoring (RA mean pressure 8 mm Hg and LA mean pressure 12 mm Hg), LA saturation (99%),��as well as fluoroscopy.��The sheath was advanced over the
dilator and positioned in the left atrium.��This procedure was repeated for the Agilis sheath.��The remainder of the calculated heparin bolus was administered and heparin was
infused to maintain ACT at 300 -350 seconds throughout the case.
4.��RA pacing was performed via the proximal decapolar poles and LA pacing was performed via the distal decapolr poles.
5. A quadrapolar catheter was first positioned at the His position for His Bundle recording which was tagged via the 3-D Navex sytem, and then passed to the RVA for RV pacing and recording.
6. The multipolar grid catheter and the lightest catheter were placed in each of the LIPV, LSPV, RSPV and the RIPV.��
7.��Next, a 3-D map was created using Navex.���A 3-D reconstructed CT image was compared to the 3-D Navex map to assist in anatomic interpretation, mapping and ablation.��The CT image and the NavX image were fused.
8. Once areas of reconnection were confirmed the lightest catheter performed ablation at each paulino and a box lesion set across the roof, floor and connecting lesions in the posterior wall and the posterior aspects of the left and right pulmonary
veins. This brought about entrance and exit block in all 4 pulmonary veins as well as the roof posterior wall and floor of the left atrium. Electrical silence in the posterior wall was noted. We reconfirmed entrance and exit block with the
multipolar grid catheter as well correlating with the lattice catheter.
9. EP study demonstrated AV Wenke block at 680 ms and a baseline TN interval of 280 ms under anesthesia. Patient had baseline right bundle branch block. Patient was noninducible for any other tachyarrhythmia.
TOTAL FLOURO TIME: 17.6 minutes
TOTAL RF DURATION: 0 minutes
REVERSAL OF HEPARIN: 35 mg of protamine, slow IV administration
COMPLICATIONS:
None
Intracardiac US shows no pericardial effusion post ablation.
SUMMARY:��
Complex left atrial mapping and ablation.
Reisolation of the paulino of the left veins and paulino of the right veins as well as a posterior box lesion set addressing ingrowth at the roof and the inferior portion of the prior left atrial posterior wall isolation.
RECOMMENDATIONS:
1. Ambulate in 2 to 3 hours
2. Resume anticoagulation
3.� Can consider discontinuation of metoprolol given AV conduction disease
4.��Consider same-day discharge
Copy to: Dr. Remy Mcconnell
--- NOTE | 2025-01-17 16:06 | W.PN.UPDATE ---
Update Note
Progress Note Update
74 yo WM s/p PVI (same day). He denies cp, sob, guy diet, b/l groins VASCADE closure c/d/i, soft, EKG SR/SB RBBB. He will resume Eliquis tonight. Activity restrictions reviewed. He will f/u Dr. Mcconnell in 1 mo. He is for d/c home after 5pm if groins
stable and able to void.
== END 2025-01-17 17:05 | disposition home or self-care (01) ==
LOC: CATH 08:13
PROVIDERS: ATTENDING PHYSICIAN Internal Medicine Cardiovascular Disease; FAMILY PHYSICIAN Internal Medicine; OTHER PHYSICIAN Internal Medicine Cardiovascular Disease
DX: I48.19 Other persistent atrial fibrillation (principal); I13.0 Hypertensive heart and chronic kidney disease with heart failure and stage 1 through stage 4 chronic kidney disease, or unspecified chronic kidney disease; I50.32 Chronic diastolic (congestive) heart failure; I25.10 Atherosclerotic heart disease of native coronary artery without angina pectoris; Z95.1 Presence of aortocoronary bypass graft; Z95.5 Presence of coronary angioplasty implant and graft; E78.5 Hyperlipidemia, unspecified; E03.9 Hypothyroidism, unspecified; M19.90 Unspecified osteoarthritis, unspecified site; E66.9 Obesity, unspecified; Z68.37 Body mass index [BMI] 37.0-37.9, adult; N18.30 Chronic kidney disease, stage 3 unspecified; Z79.82 Long term (current) use of aspirin; Z79.890 Hormone replacement therapy; Z79.899 Other long term (current) drug therapy; Z79.01 Long term (current) use of anticoagulants; Z96.653 Presence of artificial knee joint, bilateral; Z98.890 Other specified postprocedural states; I47.10 Supraventricular tachycardia, unspecified
CPT/HCPCS: C1733; C1732; C1894; C1730; C1766; C1892; C1759; 85347; 93005; 93656; 93657; C1760

== ENCOUNTER → 2025-07-24 09:22 | Outpatient (REF) | payer MEDICARE, OTHER, SELFPAY | LOC: RAD 09:22 | PROVIDERS: ATTENDING PHYSICIAN Physician Assistant; FAMILY PHYSICIAN Internal Medicine | DX: I65.23 Occlusion and stenosis of bilateral carotid arteries (principal) | CPT/HCPCS: 93880 ==